=== PATIENT | male | born 2000 | race African-American/Black ===

== ENCOUNTER 2018-05-12 06:35 | Day surgery (SDC) | payer OTHER ==
[~2018-05-12] VITALS: Ht 182.9 cm; Wt 111.2 kg
[2018-05-12 07:09] VITALS: BP 127/60; PULSE 61; TEMP 98.2
[2018-05-12 10:02] VITALS: BP 139/89; PULSE 74; TEMP 96.9
--- NOTE | 2018-05-12 10:02 | NUR ---
TO RM 6 PER CART FROM SURGERY. OPENS EYES TO VERBAL STIMULI FROM FATHER AND FALLS BACK TO SLEEP. RIGHT ARM IN SLING. UNABLE TO FEEL OR MOVE FINGERS RIGHT HAND DUE TO BLOCK. RIGHT ARM IN SLING. DRESSINGS CLEAN DRY INTACT. ICE OVER INCISION SITE.
[2018-05-12 10:20] VITALS: BP 107/89; PULSE 64
--- NOTE | 2018-05-12 10:20 | NUR ---
OPENS EYES WITH VERBAL STIMULI AND STILL FALLS BACK TO SLEEP. WILL TAKE DEEP BREATHS WHEN ASK WITH EYES CLOSED. MOTHER AND FATHER AT BEDSIDE DENIES PAIN AND NAUSEA OR VOMITING.
[2018-05-12] MEDS ORDERED: MOBIC15 MG PO (10:29)
[2018-05-12] MEDS ORDERED: NORCO 325 MG-51 TAB PO (10:29)
[2018-05-12] MEDS ORDERED: COLACE 100100 MG/CAP PO (10:30)
[2018-05-12] MEDS ORDERED: ZOFRAN 4MG T4 MG/TAB PO (10:30)
[2018-05-12 10:35] VITALS: BP 118/59; PULSE 65
--- NOTE | 2018-05-12 10:35 | NUR ---
MORE AWAKE AND TALKING TO PARENTS. RECEIVED WATER AND TAKING SIPS.
[2018-05-12 10:50] VITALS: BP 115/44; PULSE 62
--- NOTE | 2018-05-12 10:56 | NUR ---
Initial visit; Patient and family thanked [employer] for offering prayer and positive thoughts for thorough and rapid healing from his surgical procedure.
[2018-05-12 11:00] VITALS: BP 105/44; PULSE 68
--- NOTE | 2018-05-12 11:00 | NUR ---
ENCOURAGED PATIENT TO TAKE DEEP BREATHS AND COUGH. ATE 100% AND TOLERATED WELL. RECEIVED DISCHARGE INSTRUCTIONS AND MOTHER SIGNED. DISCONTINUED IV AND INT- CATHETER INTACT. GETTING DRESSED WITH FATHERS ASSIST.
--- NOTE | 2018-05-12 11:17 | NUR ---
DISCHARGED PER WC BY NURSING STAFF TO PRIVATE CAR IN CARE OF MOTHER AND FATHER.
--- NOTE | 2018-05-12 11:27 | NUR ---
RECEIVED MUFFIN AND FED TO HIM BY HIS MOTHER.
== END 2018-05-12 11:20 | disposition home or self-care (01) ==
LOC: SDCO 06:35
DX: T84.84XA Pain due to internal orthopedic prosthetic devices, implants and grafts, initial encounter (principal); J45.909 Unspecified asthma, uncomplicated; I10 Essential (primary) hypertension
CPT/HCPCS: J0690; J1100; J2250; J2704; J2795; J3010; J7120